=== PATIENT | male | born 2005 | race Caucasian/White ===

== ENCOUNTER 2023-12-10 19:36 | Emergency (ER) | payer SELFPAY ==
[2023-12-10 19:44] VITALS: BP 134/72; PULSE 89; RESP 18; TEMP 37.6; O2SAT 100
--- NOTE | 2023-12-10 20:32 | ED.URI ---
HPI - URI/Sore Throat General Chief Complaint: Upper Respiratory Infection Stated Complaint: Sore Throat History of Present Illness HPI Narrative: patient is a 18-year-old male, presents to [facility] with a 3 day history of sore throat symptoms, with associated fevers. He has no URI symptoms otherwise. He denies known sick contacts or COVID-19 exposures. He is taking Tylenol ibuprofen for fever reduction and pain relief with some improvement. He denies any additional associated symptoms modifying factors. Related Data Allergies Allergy/AdvReac Type Severity Reaction Status Date / Time No Known Allergies Allergy Verified 12/10/23 19:53 Review of Systems ENT: Comments: He was referred HPI Exam Const: General: healthy appearing and no acute distress Nutritional Appearance: well nourished Orientation/consciousness: patient oriented x3 Limitations: no limitations Other: patient's voice is muffled HENMT: Head: normal to inspection Ears: external ears normal and TM's normal bilaterally Mouth: Yes Normal oral and palatal mucosa present and Yes lip normal Throat: uvula midline Other: tonsils are 2+ bilaterally, beefy erythema with exudate present, uvula midline, no trismus Eyes: Conjunctivae: conjunctivae normal Neck: Neck: normal visual inspection, no meningeal signs and lymphadenopathy ( anterior cervical nodes are palpable bilaterally) Resp: Effort & Inspection: normal respiratory effort Auscultation: clear to auscultation bilaterally Cardio: Rate: regular rate Rhythm: regular rhythm Skin: General skin exam: normal color Rashes: no rashes Neuro: General: patient oriented x3, moves all extremities, no meningeal signs, no focal motor deficits and CN's II-XI intact bilaterally Cranial nerves: Yes Nystagmus not present Speech: normal speech Course Course Emergency Course: strep positive, will treat with cephalexin, follow-up with PCP if symptoms not improving in 3 days. Level of Care: [facility] Visit (24480) Vital Signs Vital signs: Vital Signs Temperature 37.6 C H 12/10/23 19:44 Pulse Rate 89 12/10/23 19:44 Respiratory Rate 18 12/10/23 19:44 Blood Pressure 134/72 12/10/23 19:44 Pulse Oximetry 100 12/10/23 19:44 Oxygen Delivery Room Air 12/10/23 19:44 Temperature 37.6 C H 12/10/23 19:44 Pulse Rate 89 12/10/23 19:44 Respiratory Rate 18 12/10/23 19:44 Blood Pressure 134/72 12/10/23 19:44 Pulse Oximetry 100 12/10/23 19:44 Oxygen Delivery Room Air 12/10/23 19:44 MDM - URI/Sore Throat MDM Narrative Medical decision making narrative: Cephalexin for positive strep Differential Diagnosis Differential diagnosis: Likely upper respiratory infection, sinusitis and pharyngitis Discharge Plan Discharge Clinical Impression: Acute streptococcal pharyngitis Patient Disposition: Home, Self-Care Condition: Stable Instructions: Antibiotic Form, Strep Throat (ED) Additional Instructions: PUSH FLUIDS, REST, COMPLETE ANTIBIOTICS DIRECTED. TAKE TYLENOL IBUPROFEN DIRECTED [id number] FOR FEVERS AND PAIN RELIEF. REPLACE TOOTHBRUSH AFTER 24 HOURS OF ANTIBIOTICS ARE COMPLETE. SEE YOUR PCP IN 3 DAYS IF SYMPTOMS NOT RESOLVING. Prescriptions: New cephalexin 500 mg capsule 500 mg PO Q12H Qty: 20 0RF Follow-up/Referrals: PHYSICIAN,MACHINIST [Primary Care Provider] - Stand Alone Forms: Work/School Release IP Time of Disposition: 20:37
[2023-12-11 11:36] LABS: EDSTREPNEGPOS1 Positive
== END 2023-12-10 20:38 | disposition home or self-care (01) ==
PROVIDERS: Emergency Provider Nurse Practitioner Family
DX: J02.0 Streptococcal pharyngitis (principal)
CPT/HCPCS: 87880; 99203; G0463

== ENCOUNTER 2024-02-10 15:04 | Emergency (ER) | payer SELFPAY ==
[2024-02-10 15:10] VITALS: BP 123/75; PULSE 111; RESP 17; TEMP 38.2; O2SAT 99
[2024-02-10 15:32] LABS: EDSTREPNEGPOS1 Positive (Negative)
--- NOTE | 2024-02-10 16:01 | ED.URI ---
HPI - URI/Sore Throat General Chief Complaint: Upper Respiratory Infection Stated Complaint: Sore Throat Time Seen by Provider: 02/10/24 15:50 Source: patient, RN notes reviewed and old records reviewed Mode of arrival: ambulatory Limitations: no limitations History of Present Illness HPI Narrative: 18 year old male accompanies by friend with complaints of MD elicited complaint: cough and sore throat Onset (ago): day(s) (this morning) Related Data Allergies Allergy/AdvReac Type Severity Reaction Status Date / Time No Known Allergies Allergy Verified 12/10/23 19:53 Review of Systems Review of Systems: CONSTITUTIONAL: Denies malaise, chills, sweats, or fever. EYES: Denies visual changes, redness, or discharge. ENT: Reports rhinorrhea, congestion, sinus pain, otalgia and positive for sore throat. CARDIOVASCULAR: Denies chest pain, palpitations, or edema. RESPIRATORY: Reports cough.? Denies dyspnea. GASTROINTESTINAL: Denies abdominal pain, nausea, vomiting, diarrhea SKIN: Denies rash or itching. MUSCULOSKELETAL: Denies myalgia. NEUROLOGIC: Denies headache. All systems reviewed & are unremarkable except as noted in HPI and below PMFSH Past Medical History Medical History (Updated 02/10/24 @ 16:06 by Carol Roberson NP) Strep throat Social History Social History (Updated 02/10/24 @ 16:07 by Carol Roberson NP) Smoking status: Never smoker Living arrangements: with family Occupation/Education: student Gender identity (if verbalized by the patient): Male Comments At time of signature, agree with nursing past medical, surgical, social and family history. There is no relevant family history pertinent to the presenting complaint Exam Narrative: GENERAL: Well-appearing, well-nourished, and in no acute distress. HEAD: Normocephalic EYES: PERRLA, conjunctivae clear ENT: Nares clear, turbinates edematous and erythematous, clear discharge. Mucous membranes moist. TM pearly hernandez with dull light reflex bilaterally; no tragal tenderness. Oropharynx erythematous without lesions. Tonsils not enlarged and without exudate, no drooling, no hoarseness, no trismus, uvula midline. NECK: Supple. No lymphadenopathy CHEST: Clear to auscultation, breath sounds equal. No wheezing, rhonchi, rales, or stridor. No respiratory distress, speaks in full sentences. HEART: Regular rate and rhythm. No murmur heard. SKIN: Warm, dry, no rash. NEURO: Alert and oriented x3. PSYCH: Normal mood and affect Course Course Emergency Course: Patient is aware of diagnosis, understands and agrees to treatment plan.? Anticipatory guidance given.? Patient agrees to follow-up as directed and is aware of reasons to seek care at the emergency department. Portions of this record may have been created with voice recognition software Level of Care: [facility] Visit Vital Signs Vital signs: Vital Signs Temperature 38.2 C H 02/10/24 15:10 Pulse Rate 111 H 02/10/24 15:10 Respiratory Rate 17 02/10/24 15:10 Blood Pressure 123/75 02/10/24 15:10 Pulse Oximetry 99 02/10/24 15:10 Oxygen Delivery Room Air 02/10/24 15:10 Temperature 38.2 C H 02/10/24 15:10 Pulse Rate 111 H 02/10/24 15:10 Respiratory Rate 17 02/10/24 15:10 Blood Pressure 123/75 02/10/24 15:10 Pulse Oximetry 99 02/10/24 15:10 Oxygen Delivery Room Air 02/10/24 15:10 Reviewed MDM - URI/Sore Throat MDM Narrative Medical decision making narrative: Differential diagnosis considered: Cisneros virus, strep pharyngitis, allergic rhinitis, upper respiratory tract infection, sinusitis, rhinosinusitis, nasopharyngitis. viral pharyngitis, otitis media, otitis externa, pneumonia, bronchitis, viral cough syndrome, viral syndrome, and influenza.? Exam findings show no acute concerns or changes; patient is non-toxic appearing and is in no distress.? Patient is appropriate for outpatient treatment and follow-up. Lab Data Attestation: I reviewed the patient's lab results. Labs: Lab Results 02/10/24 Range/Units 15:15 POC Grp A Strep Screen Positive (Negative) Critical Care Time Critical Care Time Critical Care Time: No Discharge Plan Discharge Clinical Impression: Exposure to strep throat Patient Disposition: Home, Self-Care Condition: Stable Instructions: Antibiotic Form, Strep Throat (ED) Additional Instructions: You tested positive for Group A strep . Take the entire course of antibiotics. Throw away your current toothbrush and begin using a new toothbrush in 48 hours in order to prevent re-infection. Sanitize all reusable water bottles . Do not share items with others. Salt water gargles may alleviate some of the throat discomfort. You can take tylenol or ibuprofen per the package instructions for pain/fever. If your symptoms persist, change or worsen significantly before you can contact your personal physician then please, without delay, go to the emergency department for further evaluation. Follow-up with PCP in 7-10 days or sooner if needed Your considered contagious to you been on oral antibiotics for 24 hours Prescriptions: New cephalexin 500 mg capsule 500 mg PO Q8H Qty: 21 0RF Follow-up/Referrals: PHYSICIAN,DIGITAL STRATEGIST [Primary Care Provider] - Time of Disposition: 16:08
== END 2024-02-10 16:14 | disposition home or self-care (01) ==
PROVIDERS: Emergency Provider Registered Nurse
DX: J02.9 Acute pharyngitis, unspecified (principal); Z20.818 Contact with and (suspected) exposure to other bacterial communicable diseases
CPT/HCPCS: 87880; 99213; G0463